=== PATIENT | female | born 1965 | race Caucasian/White ===

== ENCOUNTER 2021-07-29 09:42 | Emergency (ER) | payer BC, OTHER ==
[2021-07-29] MEDS ORDERED: SODIUM CHLORIDE 0.9% 1000 ML INFUS.BAG IV ONE (10:05)
[2021-07-29] MEDS ORDERED: ACETAMINOPHEN INJECTION 100 ML IVPB ONE (10:05)
[2021-07-29] MEDS ORDERED: ONDANSETRON 4 MG/2 ML VIAL IVPUSH ONE ×2 (10:05→10:06)
[2021-07-29] MEDS ORDERED: FAMOTIDINE 20 MG/50 ML IVPB 20 MG/50 ML MG IVPB ONE ×2 (10:05→10:06)
[2021-07-29] MEDS ORDERED: ACETAMINOPHEN 1000 MG/100 ML VIAL (NON FORMULARY) IVPB ONE (10:05)
[2021-07-29] MEDS ORDERED: ONDANSETRON 4 MG/2 ML VIAL ONE (10:05)
[2021-07-29 10:10] VITALS: BP 138/95; PULSE 108; TEMP 97.9; BMI 24.9
[2021-07-29 10:49] LABS: BASO % 1.1 % (0-2.0); HEMATOCRIT 43.8 % (32.4-45.2); HEMOGLOBIN 14.7 GM/dl (10.7-15.3); LYMPH % 7.7 % (8-40); MCH 30.5 pg (25.7-33.7); MCHC 33.5 g/dl (32.0-36.0); MEAN CELL VOLUME 91.2 fl (80-96); MEAN PLT VOLUME 8.7 fl (7.5-11.1); MONO % 4.2 % (3.8-10.2); PLATELET COUNT 282 10^3/uL (134-434); RDW 12.8 % (11.6-15.6); WHITE BLOOD COUNT 11.4 K/mm3 (4.0-10.8)
[2021-07-29 11:03] LABS: ALBUMIN 4.7 g/dl (3.4-5.0); BILIRUBIN,TOTAL 0.7 mg/dl (0.2-1); CALCIUM 9.8 mg/dl (8.5-10); CREATININE 0.6 mg/dl (0.55-1.3); TOT PROT 8.4 g/dl (6.4-8.2)
[2021-07-29 11:11] LABS: EPITHELIAL CELLS RARE /hpf
== END 2021-07-29 13:41 | disposition home or self-care (01) ==
LOC: FER 09:42
PROC: 3E0333Z Introduction of Anti-inflammatory into Peripheral Vein, Percutaneous Approach (ICD-10-PCS; principal; 2021-07-29)
PROC: 3E033GC Introduction of Other Therapeutic Substance into Peripheral Vein, Percutaneous Approach (ICD-10-PCS; 2021-07-29)
PROC: 3E033GC Introduction of Other Therapeutic Substance into Peripheral Vein, Percutaneous Approach (ICD-10-PCS; 2021-07-29)
DX: K29.70 Gastritis, unspecified, without bleeding (principal)
CPT/HCPCS: 36415; 76705-TC; 80053; 81003; 81015; 85025; 87804; 99284-25; C9803; J0131; U0003; U0005

== ENCOUNTER 2025-04-17 16:37 | Inpatient (IN) | payer BC, OTHER ==
[2025-04-17] MEDS: SODIUM CHLORIDE 0.9% 1000 ML INFUS.BAG IV ONE (17:15)
[2025-04-17] MEDS ORDERED: FAMOTIDINE 20 MG/50 ML IVPB 20 MG/50 ML MG IVPB ONE (17:27)
[2025-04-17] MEDS ORDERED: ONDANSETRON 4 MG/2 ML VIAL ONE (17:27)
[2025-04-17] MEDS ORDERED: ACETAMINOPHEN INJECTION 100 ML ONE (17:27)
[2025-04-17] MEDS: ACETAMINOPHEN 1000 MG/100 ML BAG IVPB ONE (17:34)
[2025-04-17] MEDS: FAMOTIDINE 20 MG/50 ML IVPB 20 MG/50 ML MG IVPB ONE (17:35)
[2025-04-17] MEDS: ONDANSETRON 4 MG/2 ML VIAL IVPUSH ONE (17:35)
[2025-04-17 17:37] LABS: ABSOLUTE IMMATURE GRANULOCYTES 0.02 x10^3/uL (0.0-0.031); BASOPHILS # 0.04 x10^3/uL (0.01-0.08); HEMATOCRIT 45.2 % (34.1-44.9); HEMOGLOBIN 14.9 g/dL (11.2-15.7); INR 0.86 (0.83-1.09); MEAN CELL VOLUME 90.9 fl (79.4-94.8); MONOCYTE # 0.66 x10^3/uL (0.24-0.86); MONOCYTE % 4.4 % (4.7-12.5); PLATELET COUNT 314 x10^3/uL (182-369); PROTHROMBIN TIME (PATIENT) 9.6 SEC (9.7-13.0); RDW 13.1 % (12.3-16.6)
[2025-04-17 17:39] LABS: ACTIVATED PTT 29.1 SECONDS (25.2-36.5)
[2025-04-17 17:48] LABS: ALBUMIN 5.3 g/dl (3.4-5.0); ALK PHOS 67 U/L (45-117); ANION GAP 15 mmol/L (4-13); BILIRUBIN,TOTAL 0.8 mg/dl (0.2-1); CALCIUM 10.6 mg/dl (8.5-10.1); CHLORIDE 96 mmol/L (98-107); CO2 30 mmol/L (21-32); CREATININE 0.8 mg/dl (0.6-1.3); GLUCOSE,RANDOM 134 mg/dl (74-106); MAGNESIUM 2.2 mg/dL (1.8-2.4); POTASSIUM 4.2 mmol/L (3.5-5.1); SGOT/AST 19 U/L (15-37); SGPT/ALT 17 U/L (7-52); SODIUM 141 mmol/L (136-145); TOT PROT 8.4 g/dl (6.4-8.2)
[2025-04-17] MEDS ORDERED: PIPERACILLIN/TAZOBACTAM 4.5 GM VIAL IVPB ONE (20:52)
[2025-04-17] MEDS ORDERED: morphine SULFATE 4 MG/ML VIAL ONE (20:52)
[2025-04-17] MEDS: morphine CARPU-JECT 4 MG/1 ML DISP.SYRIN IVPUSH ONE (21:14)
[2025-04-17] MEDS: SODIUM CHLORIDE 1,000 ML IV ONE (21:14)
[2025-04-17] MEDS: PIPERACILLIN/TAZOB 4.5 GM 4.5 GM in DEXTROSE 5%-WATER 100 ML IVPB ONE (21:14)
[2025-04-17 21:48] LABS: EPITHELIAL CELLS 0-5 /hpf
[2025-04-17] MEDS ORDERED: ONDANSETRON 4 MG/2 ML VIAL IVPUSH PRN (23:30)
[2025-04-18] MEDS: ceFAZolin SODIUM 1 GM VIAL IVPB ONE
[2025-04-18] MEDS: DEXTROSE 5%-0.45% SALINE 1,000 ML IV SCH (01:49)
[2025-04-18] MEDS: ACETAMINOPHEN 1000 MG/100 ML BAG IVPB PRN (01:51)
[2025-04-18 02:42] VITALS: BMI 24.9
[2025-04-18] MEDS: PIPERACILLIN/TAZOB 3.375 GM 3.375 GM in DEXTROSE 5%-WATER - 50 ML IVPB SCH ×3 (03:23→23:42)
[2025-04-18] MEDS: HEPARIN NA (PORCINE) 5,000 UNITS/ML 1ML VIAL SQ SCH ×2 (07:14→22:09)
[2025-04-18 08:46] LABS: BASOPHILS # 0.03 x10^3/uL (0.01-0.08); EOSINOPHIL % 1.4 % (0.7-5.8); EOSINOPHILS # 0.05 x10^3/uL (0.04-0.36); HEMATOCRIT 38.5 % (34.1-44.9); HEMOGLOBIN 12.1 g/dL (11.2-15.7); MCHC 31.4 g/dl (32.2-35.5); MEAN CELL VOLUME 91.4 fl (79.4-94.8); MEAN PLT VOLUME 10.2 fl (9.4-12.3); MONOCYTE % 13.6 % (4.7-12.5); PLATELET COUNT 243 x10^3/uL (182-369); RDW 13.5 % (12.3-16.6)
[2025-04-18] MEDS: PHENOL 177 ML SPRAY BOTTLE MM PRN (10:13)
[2025-04-18] MEDS ORDERED: MIDAZOLAM HCL 2 MG/2 ML SINGLE DOSE VIAL ONE (16:22)
[2025-04-18] MEDS ORDERED: PROPOFOL 20 ML ONE (16:22)
[2025-04-18] MEDS ORDERED: LIDOCAINE HCL 2% 100 MG/5 ML DISP.SYRIN ONE (16:22)
[2025-04-18] MEDS ORDERED: SUCCINYLCHOLINE CHLORIDE 200 MG/10 ML SYRINGE ONE (16:22)
[2025-04-18] MEDS ORDERED: ROCURONIUM BROMIDE 50 MG/5 ML SYRINGE ONE (16:23)
[2025-04-18] MEDS: PIPERACILLIN/TAZOBACTAM 3.375 GM VIAL IVPB ONE (16:45)
[2025-04-18] MEDS ORDERED: SUGAMMADEX SODIUM 200 MG/2 ML VIAL ONE (16:59)
[2025-04-18] MEDS: BUPIVACAINE HCL/PF 0.25% (2.5MG/ML) 10 ML VIAL IJ ONE ×2 (17:04)
[2025-04-18] MEDS ORDERED: ONDANSETRON 4 MG/2 ML VIAL IVPUSH PRN ×2 (19:38→19:53)
[2025-04-18] MEDS ORDERED: PROMETHAZINE HCL 25 MG/1 ML VIAL IVPB PRN ×2 (19:38→19:53)
[2025-04-18] MEDS ORDERED: ACETAMINOPHEN INJECTION 100 ML ONE (19:47)
[2025-04-18] MEDS ORDERED: morphine SULFATE 4 MG/ML VIAL IVPUSH PRN (19:51)
[2025-04-18] MEDS ORDERED: PHENOL 177 ML SPRAY BOTTLE MM PRN (19:53)
[2025-04-18] MEDS: LACTATED RINGERS SOLUTION 1,000 ML IV SCH ×2 (20:54→23:43)
[2025-04-18] MEDS: ACETAMINOPHEN 1000 MG/100 ML BAG IVPB ONE (23:43)
[2025-04-19] MEDS ORDERED: BENZOCAINE 20% 57 GM BOTTLE TP PRN ×2 (01:26→02:43)
[2025-04-19] MEDS ORDERED: PIPERACILLIN/TAZOB 3.375 GM 3.375 GM in DEXTROSE 5%-WATER - 50 ML IVPB SCH (03:00)
[2025-04-19] MEDS: ACETAMINOPHEN 1000 MG/100 ML BAG IVPB SCH (05:29)
[2025-04-19] MEDS: SODIUM CHLORIDE 1,000 ML IV STA (06:35)
[2025-04-19] MEDS ORDERED: KETOROLAC TROMETHAMINE 15 MG/ML VIAL IVPUSH PRN (08:00)
[2025-04-19 08:58] LABS: ABSOLUTE IMMATURE GRANULOCYTES 0.02 x10^3/uL (0.0-0.031); BASOPHILS # 0.01 x10^3/uL (0.01-0.08); HEMATOCRIT 35.5 % (34.1-44.9); HEMOGLOBIN 11.4 g/dL (11.2-15.7); MCHC 32.1 g/dl (32.2-35.5); MEAN CELL VOLUME 92.2 fl (79.4-94.8); MEAN PLT VOLUME 10.4 fl (9.4-12.3); MONOCYTE # 0.58 x10^3/uL (0.24-0.86); MONOCYTE % 8.6 % (4.7-12.5); PLATELET COUNT 203 x10^3/uL (182-369); RDW 13.5 % (12.3-16.6)
[2025-04-19 09:21] LABS: POTASSIUM 3.3 mmol/L (3.5-5.1)
[2025-04-19 09:32] LABS: ALBUMIN 2.8 g/dl (3.4-5.0); CALCIUM 8.5 mg/dL (8.5-10.1); MAGNESIUM 1.7 mg/dL (1.8-2.4)
[2025-04-19 09:35] LABS: BLOOD UREA NITROGEN 7.4 mg/dL (7-18); CREATININE 0.5 mg/dL (0.55-1.3); PHOSPHOROUS 3.3 mg/dL (2.5-4.9)
[2025-04-19 09:36] LABS: BILIRUBIN,TOTAL 0.6 mg/dL (0.2-1)
[2025-04-19 09:37] LABS: TOT PROT 5.8 g/dl (6.4-8.2)
[2025-04-19] MEDS: KETOROLAC TROMETHAMINE 15 MG/ML VIAL IVPUSH SCH (09:39)
[2025-04-19] MEDS ORDERED: oxyCODONE HCL 5 MG TABLET PO PRN ×2 (10:00)
[2025-04-19] MEDS: MAGNESIUM 2GM/50ML STERILE WATER IVPB IVPB ONE (14:17)
[2025-04-19 15:43] LABS: HEMATOCRIT 34.9 % (34.1-44.9); HEMOGLOBIN 11.2 g/dL (11.2-15.7); MCHC 32.1 g/dl (32.2-35.5); MEAN CELL VOLUME 92.6 fl (79.4-94.8); MEAN PLT VOLUME 9.6 fl (9.4-12.3); PLATELET COUNT 207 x10^3/uL (182-369); RDW 13.4 % (12.3-16.6)
[2025-04-19] MEDS: KCL 10 MEQ IVPB 10 MEQ/100 ML INFUS.BAG IVPB SCH (15:53)
[2025-04-19 16:12] LABS: POTASSIUM 3.2 mmol/L (3.5-5.1)
[2025-04-19 16:14] LABS: CALCIUM 8.7 mg/dL (8.5-10.1)
[2025-04-19 16:18] LABS: CREATININE 0.5 mg/dL (0.55-1.3)
[2025-04-19] MEDS: LACTATED RINGERS SOLUTION 1000 ML INFUS.BAG IV ONE (17:51)
[2025-04-19] MEDS: LACTATED RINGERS SOLUTION 1,000 ML/1,000 ML INFUS.BAG IV SCH (18:35)
[2025-04-19 20:46] VITALS: RESP 18
[2025-04-19] MEDS: oxyCODONE HCL 5 MG TABLET PO PRN (20:52)
[2025-04-19] MEDS: PIPERACILLIN/TAZOB 3.375 GM 3.375 GM in DEXTROSE 5%-WATER - 50 ML IVPB SCH ×2 (22:37→22:43)
[2025-04-20] MEDS: ACETAMINOPHEN 325 MG TABLET (FP) PO ONE (06:48)
[2025-04-20] MEDS ORDERED: KETOROLAC TROMETHAMINE 15 MG/ML VIAL IVPUSH ONE (07:00)
[2025-04-20 08:30] LABS: ABSOLUTE IMMATURE GRANULOCYTES 0.04 x10^3/uL (0.0-0.031); BASOPHILS # 0.04 x10^3/uL (0.01-0.08); EOSINOPHILS # 0.08 x10^3/uL (0.04-0.36); HEMATOCRIT 34.3 % (34.1-44.9); MCHC 32.1 g/dl (32.2-35.5); MEAN CELL VOLUME 92.5 fl (79.4-94.8); MONOCYTE # 0.47 x10^3/uL (0.24-0.86); MONOCYTE % 6.1 % (4.7-12.5); PLATELET COUNT 218 x10^3/uL (182-369); RDW 13.3 % (12.3-16.6)
[2025-04-20 08:49] LABS: POTASSIUM 3.3 mmol/L (3.5-5.1)
[2025-04-20 09:06] LABS: ALBUMIN 2.8 g/dl (3.4-5.0); BLOOD UREA NITROGEN 6.9 mg/dL (7-18); CALCIUM 8.5 mg/dL (8.5-10.1); MAGNESIUM 2.2 mg/dL (1.8-2.4)
[2025-04-20 09:08] VITALS: BP 133/82; PULSE 89; TEMP 98.1
[2025-04-20 09:09] LABS: CREATININE 0.4 mg/dL (0.55-1.3)
[2025-04-20 09:10] LABS: BILIRUBIN,TOTAL 0.7 mg/dL (0.2-1); TOT PROT 6.1 g/dl (6.4-8.2)
[2025-04-20] MEDS ORDERED: IBUPROFEN 600 MG TABLET (FP) PO PRN (10:09)
[2025-04-20] MEDS ORDERED: ACETAMINOPHEN 500 MG TABLET (FP) PO PRN (10:09)
[2025-04-20] MEDS: KETOROLAC TROMETHAMINE 15 MG/ML VIAL IVPUSH ONE (10:37)
[2025-04-20] MEDS ORDERED: BENZOCAINE 20% 57 GM BOTTLE TP PRN (14:41)
== END 2025-04-20 17:36 | disposition home or self-care (01) | DRG 330 ==
LOC: FER 16:37 → J7W 04-18 01:15 → J8W 04-18 21:16 → UNDODISIN 04-20 14:20
PROVIDERS: ADMIT Internal Medicine
PROC: 0DB84ZZ Excision of Small Intestine, Percutaneous Endoscopic Approach (ICD-10-PCS; 2025-04-18)
PROC: 0DNW4ZZ Release Peritoneum, Percutaneous Endoscopic Approach (ICD-10-PCS; principal; 2025-04-18 19:00)
DX: K56.699 Other intestinal obstruction unspecified as to partial versus complete obstruction (principal); K91.89 Other postprocedural complications and disorders of digestive system; E28.2 Polycystic ovarian syndrome; K59.00 Constipation, unspecified; J30.9 Allergic rhinitis, unspecified; Q43.0 Meckel's diverticulum (displaced) (hypertrophic); D72.829 Elevated white blood cell count, unspecified; Y83.8 Other surgical procedures as the cause of abnormal reaction of the patient, or of later complication, without mention of misadventure at the time of the procedure; E87.6 Hypokalemia; E83.42 Hypomagnesemia
CPT/HCPCS: 0241U-QW; 36415; 71045-TC-FY; 74177-TC; 76705-TC; 80048; 80053; 81003; 81015; 83690; 83735; 84100; 84484; 85025; 85027; 85610; 85730; 86850; 86900; 86901; 88307-TC; 93005; 93010; 94010; 94760; 97116-GP; 97161-GP; 99285-25; J0131; J1644